=== PATIENT | female | born 1940 | race Caucasian/White ===

== ENCOUNTER 2021-09-24 23:36 | Emergency (ER) | payer OTHER ==
[~2021-09-24] VITALS: Ht 154.9 cm; Wt 55.3 kg
[2021-09-25] MEDS ORDERED: cefTRIAXone SOD 1,000 MG VL IM ONE (03:30)
[2021-09-25] MEDS ORDERED: AZITTAB PO (03:33)
[2021-09-25 03:38] VITALS: BP 132/74
== END 2021-09-25 03:41 | disposition home or self-care (01) ==
LOC: ER 23:41
DX: J06.9 Acute upper respiratory infection, unspecified (principal); I10 Essential (primary) hypertension
CPT/HCPCS: 71045; 96372; 99283; J0696